=== PATIENT | male | born 1980 | race Caucasian/White ===

== ENCOUNTER 2021-03-08 16:50 | Emergency (ER) | payer BC ==
[2021-03-08] MEDS ORDERED: Lidocaine 1% 10 ML MDV INJECT ONE (16:52)
[2021-03-08] MEDS ORDERED: Amoxicillin/Clavulanate K 875-125 MG Tab PO ONE (17:00)
--- NOTE | 2021-03-08 17:02 | EDM.PDOC ---
ED HPI GENERAL MEDICAL PROBLEM - General Chief Complaint: Laceration Stated Complaint: FALL Time Seen by Provider: 03/08/21 16:56 Source of Information: Reports: Patient History Limitations: Reports: No Limitations - History of Present Illness INITIAL COMMENTS - FREE TEXT/NARRATIVE: 41-year-old male presents to the ED with an acute injury to his right knee. Approximately 45 minutes before arrival in the ED patient was trimming trees with a chainsaw and the chainsaw kicked back and struck him across his right anterior knee. He has a deep 7 cm laceration that travels across the patella and appears to involve the prepatellar bursa. There is a second linear laceration which is not full-thickness superior to the 7 cm wound and measures approximately 4 cm. Question whether or not the medial aspect of the patella was involved with a chainsaw with bony injury. There is minimal injury to the quadriceps apparatus as it travels around the patella. He has pain with flexion of the knee but no evidence of any ligamentous laxity. Wound is not bleeding at the time of exam. His last tetanus toxoid is felt to have been given to him 2 years ago. Onset: Today, Sudden Onset Date: 03/08/21 Onset Time: 16:10 Duration: Minutes: Location: Reports: Lower Extremity, Right (Laceration across his anterior patella with a chainsaw) Quality: Reports: Ache, Throbbing Severity: Mild Improves with: Reports: Rest Worsens with: Reports: Movement Context: Reports: Trauma (Slipped while using a chainsaw cutting trees at work this p.m.). Denies: Activity, Exercise, Lifting, Sick Contact Associated Symptoms: Reports: No Other Symptoms Treatments MANAGER COPY: Reports: Other (see below) (None.) - Related Data Allergies Allergy/AdvReac Type Severity Reaction Status Date / Time No Known Allergies Allergy Verified 03/08/21 16:55 Home Meds: Home Meds Doxycycline [Vibra-Tabs] 100 mg PO Q12HR #24 tab 03/08/21 [Rx] Past Medical History - Past Health History Medical/Surgical History: Denies Medical/Surgical History Social & Family History - Tobacco Use Tobacco Use Status *Q: Never Tobacco User - Caffeine Use Caffeine Use: Reports: Coffee - Recreational Drug Use Recreational Drug Use: No - Living Situation & Occupation Living situation: Reports: Single Occupation: Employed ED ROS GENERAL - Review of Systems Review Of Systems: See Below Constitutional: Reports: No Symptoms HEENT: Reports: No Symptoms Respiratory: Reports: No Symptoms Cardiovascular: Reports: No Symptoms Endocrine: Reports: No Symptoms GI/Abdominal: Reports: No Symptoms : Reports: No Symptoms Musculoskeletal: Reports: No Symptoms Skin: Reports: No Symptoms Neurological: Reports: No Symptoms Psychiatric: Reports: No Symptoms Hematologic/Lymphatic: Reports: No Symptoms Immunologic: Reports: No Symptoms ED EXAM, SKIN/RASH Exam: See Below Exam Limited By: No Limitations General Appearance: Alert, WD/WN, Mild Distress, Other (Temperature is 36.2 degrees. Heart rate 83 and sinus. Respiratory 16 with O2 sats of 98% room air BP is 159/80.) Extremities: Limited Range of Motion (Painful flexion but he has no problem flexing the knee and the quadriceps tendon is intact.), Other (Examination was limited to the right knee. He has a horizontal laceration starting around mid patella that travels medially and is approximately 7 cm in length. There is a second more superficial laceration centimeter superior to the deeper wound approximately 4 cm in length. Prepatellar bursa ap). No: Pedal Edema, Increased Warmth Neurological: Alert, Oriented, CN II-XII Intact, Normal Cognition. No: Normal Gait Psychiatric: Normal Affect, Normal Mood (Walking stifflegged leg compartment) Skin: Warm, Dry, Intact, Normal Color, No Rash ED SKIN PROCEDURES - Laceration/Wound Repair Right Middle Knee Appearance: Stellate, Mildly Contaminated Distal NVT: Neuro & Vascular Intact Anesthetic Type: Local Local Anesthesia - Lidocaine (Xylocaine): 1% Plain Local Anesthetic Volume: Other (12 cc) Skin Prep: Saline Exploration/Debridement/Repair: Wound Explored, Minimal Debridement Closed with: Sutures Lac/Wound length In cm: 7.0 Suture Size: 3-0 # of Sutures: 14 Suture Type: Nylon, Interrupted, Simple Suture Size: 4-0 # of Sutures: 6 Repaired with: Vicryl Course - Vital Signs Last Recorded V/S: Last Vital Signs Temp 36.2 C 03/08/21 16:52 Pulse 83 03/08/21 16:52 Resp 16 03/08/21 16:52 BP 159/80 H 03/08/21 16:52 Pulse Ox 98 03/08/21 16:52 - Orders/Labs/Meds Orders: Active Orders 24 hr Category Date Time Status Knee 3V Rt [CR] Stat Exams 03/08/21 16:56 Taken Meds: Medications Discontinued Medications Generic Name Dose Route Start Last Admin Trade Name Josh PRN Reason Stop Dose Admin Amoxicillin/Clavulanate Potassium 1 tab 03/08/21 17:00 03/08/21 17:18 Amoxicillin/Clavulanate K 875-125 Mg Tab PO 03/08/21 17:01 1 tab ONETIME ONE Administration Lidocaine HCl 10 ml 03/08/21 16:52 03/08/21 17:18 Lidocaine 1% 10 Ml Mdv INJECT 03/08/21 16:53 10 ml ONETIME ONE Administration - Radiology Interpretation Free Text/Narrative:: 41-year-old male presents to the ED with an acute injury to his right anterior knee from a chainsaw. He was cutting branches while kneeling and the chainsaw kicked back and struck him across the anterior aspect of the patella. He has a deep laceration across the mid patella the travels medially approximately 7 cm in length. There is a more superficial linear laceration superior to the deeper laceration that is approximately 4 cm in length. Both wounds are going to require laceration repair. He will be given Augmentin 875/1 2 5 mg tablet by mouth. The wound will be irrigated thoroughly. Lidocaine 1% to anesthetize the area . Three-view x-ray of the patella to be done to make sure there is no bony involvement of the medial aspect of the patella which has a fairly deep component to the laceration. His tetanus toxoid is up-to-date - Re-Assessments/Exams Free Text/Narrative Re-Assessment/Exam: 03/08/21 18:21 patient has 3 separate horizontal lacerations across his anterior right knee. The most superior laceration is 3.5 cm in length and was sutured under local anesthetic times 7 sutures. The most inferior horizontal laceration was 3.0 cm in length and sutured times 7 sutures with 4-0 Ethilon as well. The largest deep wound was across the middle portion of the patella and measures 7 cm in length. It was sutured in 2 layers using 4-0 Ethilon times 6 sutures and then 3-0 nylon sutures x12 sutures to provide adequate wound closure. Sutures are to remain in place for 14 days. Patient will cleanse the wound at home with soap and water. Showering is okay. Then he will apply topical antibiotic such as bacitracin or Polysporin to keep it covered to prevent it from getting dirty. He will return to medical care sooner if any signs of infection occur. Patient was given Augmentin 875/1 2 5 mg tablet by mouth in the ED. He will be given a prescription for doxycycline 100 mg twice daily for the next 12 days to prevent secondary wound infection since it was mildly contaminated with tree debris and bark. Departure - Departure Time of Disposition: 18:10 Disposition: Home, Self-Care 01 Condition: Fair Clinical Impression: Laceration of knee without complication Qualifiers: Encounter type: initial encounter Laterality: right Qualified Code(s): S81.011A - Laceration without foreign body, right knee, initial encounter - Discharge Information *PRESCRIPTION DRUG MONITORING PROGRAM REVIEWED*: Not Applicable *COPY OF PRESCRIPTION DRUG MONITORING REPORT IN PATIENT [place]: Not Applicable Prescriptions: Doxycycline [Vibra-Tabs] 100 mg PO Q12HR #24 tab Instructions: Laceration Care, Adult, [id number], Sutures, [place], or Adhesive Wound Closure, [id number] Referrals: PCP,None [Primary Care Provider] - Forms: ED Department Discharge Additional Instructions: Evaluation in the emergency room today in regards to 3 lacerations across the anterior aspect of your right knee that occurred from a chainsaw. The most superior laceration is approximately 3.5 cm in length and was sutured under local anesthetic x8. The inferior laceration or lower laceration measures 3 cm and was sutured x7. The middle laceration which was much deeper and full- thickness and measures 7 cm was sutured in 2 layers using 4-0 Ethilon to close up the wound and then 3-0 Ethilon nylon to close the wound completely. Wound was cleansed and dressed in the emergency room. You did receive initial dose of antibiotic Augmentin 875/1 2 5 mg tablet by mouth. Treatment at home is to daily cleanse the wound with soap and water. Showering is okay. Then apply topical antibiotic such as bacitracin or Polysporin to the wound and cover to keep clean. It is okay to leave the wound open to the air if it is going to stay clean such as in the evening while you are in the house. Motrin 600 mg every 6 hours as needed for relief of pain and swelling. You will need to take antibiotic doxycycline 100 mg twice daily for the next 12 days to prevent secondary wound infection. Sutures will need to be removed in 14 days time around March 22. Return to medical care sooner if you see any signs of infection such as increased swelling, redness or obvious pus or red streaking up the leg. This would be quite rare. Sepsis Event Note (ED) - Evaluation Sepsis Screening Result: No Definite Risk - Focused Exam Vital Signs: Vital Signs Temp Pulse Resp BP Pulse Ox 03/08/21 16:52 36.2 C 83 16 159/80 H 98 - My Orders Last 24 Hours: My Active Orders 03/08/21 16:56 Knee 3V Rt [CR] Stat - Assessment/Plan Last 24 Hours: My Active Orders 03/08/21 16:56 Knee 3V Rt [CR] Stat ED LACERATION PROCEDURES - Laceration/Wound Repair Right Middle Knee Lac/wound length in cm: 6.5 (Superior laceration right knee. Inferior laceration horizontal across right knee) Appearance: Superficial, Clean, Other (2 separate lacerations were sutured above and below a large laceration in the middle of the right knee. Computer will not allow more than 1 additional procedure note) Distal NVT: Neuro & Vascular Intact Anesthetic Type: Local Local Anesthesia - Lidocaine (Xylocaine): 1% Plain Local Anesthetic Volume: Other (6 cc) Skin Prep: Saline Exploration/Debridement/Repair: Wound Explored Closed with: Sutures Suture Size: 4-0 # of Sutures: 14 Suture Type: Nylon, Interrupted, Simple
--- NOTE | 2021-03-08 20:07 | CR ---
Right knee: AP, lateral and sunrise patellar views of the right knee were obtained. Comparison: No prior knee imaging is available Soft tissue injury is noted anteriorly. No joint effusion is seen. Medial and lateral joint compartments are maintained in height. Patellofemoral joint appears within normal limits. No fracture or other acute osseous abnormality is seen. No opaque foreign body abnormality is seen. Impression: 1. Soft tissue defect is noted anteriorly. 2. No foreign body is seen. 3. No acute osseous abnormality is appreciated. Diagnostic code #2
== END 2021-03-08 18:27 | disposition home or self-care (01) ==
LOC: JD.ED 16:50
DX: S81.011A Laceration without foreign body, right knee, initial encounter (principal); W29.3XXA Contact with powered garden and outdoor hand tools and machinery, initial encounter
CPT/HCPCS: 12002; 73562; 99283; A9270; 12032